=== PATIENT | female | born 1945 | race Caucasian/White ===

== ENCOUNTER 2017-08-30 19:21 | Observation (INO) | payer MEDICARE, OTHER ==
[~2017-08-30] VITALS: Ht 167.6 cm; Wt 68.4 kg
[2017-08-30 19:19] VITALS: O2SAT 98
[~2017-08-30 19:21] MED LIST: DEPA500T3 PO; DONE5TAB14 PO; OLAN5 PO
[2017-08-30] MEDS ORDERED: IOHEXOL 350 MG/ML 10 ML VIAL (for RAD DIAG) IVCONTRAST ONE (19:22)
[2017-08-30 19:24] VITALS: BP 147/76; PULSE 73; RESP 19; TEMP 98.2; O2SAT 98
[2017-08-30] MEDS ORDERED: SODIUM CHLOR 0.9% 1000 ML INJ 1,000 ML IV ONE (19:25)
--- NOTE | 2017-08-30 19:45 | RADRPT ---
EXAM DATE/TIME: 08/30/2017 19:35 [facility] COMPARISON: No previous studies available for comparison. INDICATIONS : Stroke alert, left sided facial droop. RADIATION DOSE: 36.84 CTDIvol (mGy) This report was called by Dr. Hidalgo to [facility] at 7: 42 PM MEDICAL HISTORY : Non-responsive. SURGICAL HISTORY : Non-responsive. ENCOUNTER: Initial ACUITY: 1 day PAIN SCALE: Non-responsive LOCATION: Bilateral head TECHNIQUE: Multiple contiguous axial images were obtained of the head. Using automated exposure control and adj ustment of the mA and/or kV according to patient size, radiation dose was kept as low as reasonably a chievable to obtain optimal diagnostic quality images. DICOM format image data is available electro nically for review and comparison. FINDINGS: CEREBRUM: The ventricles are normal for age. No evidence of midline shift, mass lesion, hemorrhage or acute in farction. No extra-axial fluid collections are seen. POSTERIOR FOSSA: The cerebellum and brainstem are intact. The 4th ventricle is midline. The cerebellopontine angle i s unremarkable. EXTRACRANIAL: The visualized portion of the orbits is intact. SKULL: The calvaria is intact. No evidence of skull fracture. CONCLUSION: 1. No acute intracranial abnormalities. Yunior Hidalgo MD on August 30, 2017 at 19:40 Board Certified Radiologist. This report was verified electronically.
[2017-08-30 19:51] VITALS: BP 177/83; PULSE 104; RESP 20; O2SAT 100
[2017-08-30 19:52] LABS: AUTOMATED NEUTROPHIL # 6.6 TH/MM3 (1.8-7.7); BASOPHIL # 0.1 TH/MM3 (0-0.2); BASOPHIL % 0.8 % (0.0-2.0); EOSINOPHIL # 0.2 TH/MM3 (0-0.4); EOSINOPHIL % 1.5 % (0.0-4.0); HEMATOCRIT 40.8 % (35.0-46.0); HEMOGLOBIN 14.1 GM/DL (11.6-15.3); LYMPH % 24.8 % (9.0-44.0); LYMPHOCYTE # 2.6 TH/MM3 (1.0-4.8); MEAN CELL VOLUME 93.3 FL (80.0-100.0); MEAN CORPUSCULAR HEMOGLOBIN 32.3 PG (27.0-34.0); MEAN CORPUSCULAR HGB CONC 34.6 % (32.0-36.0); MEAN PLATELET VOLUME 8.2 FL (7.0-11.0); MONO % 8.9 % (0.0-8.0); MONOCYTE # 0.9 TH/MM3 (0-0.9); PLATELET COUNT 214 TH/MM3 (150-450); RED BLOOD COUNT 4.38 MIL/MM3 (4.00-5.30); RED CELL DISTRIBUTION WIDTH 13.4 % (11.6-17.2); WHITE BLOOD COUNT 10.3 TH/MM3 (4.0-11.0)
[2017-08-30 20:07] LABS: INTERNATIONAL NORMALIZED RATIO 1.1 RATIO; PROTHROMBIN TIME - PATIENT 11.1 SEC (9.8-11.6)
[2017-08-30 20:08] LABS: TROPONIN I LESS THAN 0.02 NG/ML (0.02-0.05)
--- NOTE | 2017-08-30 20:21 | RADRPT ---
EXAM DATE/TIME: 08/30/2017 19:42 [facility] COMPARISON: No previous studies available for comparison. INDICATIONS : Stroke alert, left sided facial droop. IV CONTRAST: 98 cc Omnipaque 350 (iohexol) IV RADIATION DOSE: 28.38 CTDIvol (mGy) MEDICAL HISTORY : Non-responsive. SURGICAL HISTORY : Non-responsive. ENCOUNTER: Initial ACUITY: 1 day PAIN SCALE: Non-responsive LOCATION: Bilateral head TECHNIQUE: Volumetric scanning was performed using a multi-row detector CT scanner. The data was post processed with a variety of visualization algorithms including full volume maximum intensity projection, multi -planar sliding thin slab reformation, curved planar reformation, and surface rendering techniques. Using automated exposure control and adjustment of the mA and/or kV according to patient size, radiat ion dose was kept as low as reasonably achievable to obtain optimal diagnostic quality images. DICO M format image data is available electronically for review and comparison. FINDINGS: There is excellent visualization of the major intracranial arteries out to the second-order branch ve ssels. There is no evidence for aneurysm, vessel truncation or stenosis, and no evidence for vascula r malformation. CONCLUSION: Normal examination for a patient of this age. Yunior Hidalgo MD on August 30, 2017 at 20:14 Board Certified Radiologist. This report was verified electronically.
--- NOTE | 2017-08-30 20:22 | RADRPT ---
EXAM DATE/TIME: 08/30/2017 19:42 [facility] COMPARISON: No previous studies available for comparison. INDICATIONS : Stroke alert, left sided facial droop. IV CONTRAST: 98 cc Omnipaque 350 (iohexol) IV RADIATION DOSE: 28.38 CTDIvol (mGy) MEDICAL HISTORY : Non-responsive. SURGICAL HISTORY : Non-responsive. ENCOUNTER: Initial ACUITY: 1 day PAIN SCALE: Non-responsive LOCATION: Bilateral neck Elevated flow velocities and ICA/CCA ratios have been found to correlate with increased degrees of vessel stenosis, calculated as percentage of diameter relative to a normal segment of distal ICA/CCA. TECHNIQUE: Volumetric scanning was performed using a multirow detector CT scanner. The data was post processed with a variety of visualization algorithms including full-volume maximum intensity projection, multip lanar sliding thin-slab reformation, curved-planar reformation, and surface-rendering techniques. Us ing automated exposure control and adjustment of the mA and/or kV according to patient size, radiatio n dose was kept as low as reasonably achievable to obtain optimal diagnostic quality images. DICOM f ormat image data is available electronically for review and comparison. FINDINGS: AORTIC ARCH: There is a three-vessel origin of the great vessels from the aorta. No evidence of ostial narrowing. RIGHT CAROTID: The common carotid artery is intact. The carotid bulb has a normal configuration without ulceration o r narrowing. The internal carotid artery lumen is smooth without stenosis. The external carotid mone ry is intact. LEFT CAROTID: The common carotid artery is intact. The carotid bulb has a normal configuration without ulceration or narrowing. The internal carotid artery lumen is smooth without stenosis. The external carotid ar annelise is intact. VERTEBRALS: The vertebral arteries have a symmetric diameter. No stenotic lesions are seen. CONCLUSION: Normal examination for a patient of this age. Yunior Hidalgo MD on August 30, 2017 at 20:19 Board Certified Radiologist. This report was verified electronically.
[2017-08-30] MEDS ORDERED: ASPIRIN 300 MG SUPP RECTAL ONE (20:45)
[2017-08-30] MEDS ORDERED: SODIUM CHLORIDE 0.9% FLUSH 10 ML FLUSH IV FLUSH PRN (20:45)
[2017-08-30] MEDS ORDERED: GLUCAGON 1 MG/ML VIAL OTHER PRN (20:45)
[2017-08-30] MEDS ORDERED: DEXTROSE 50% IN WATER 50 ML VIAL(D50) IV PUSH PRN (20:45)
--- NOTE | 2017-08-30 20:46 | PD ---
HPI . Neuro deficits Chief Complaint: Neuro Symptoms/ Deficits Time Seen by Provider: 19:24 Travel History International Travel<30 days: No Contact w/Intl Traveler<30days: No Traveled to known affect area: No History of Present Illness HPI 31-year-old female sent from [facility] with reported sudden onset facial droop and dysarthria that occurred while at the dinner table this evening. There is no choking episode. No obvious witnessed seizure activity. As per EMS , patient had symptoms as described upon their presentation, however the symptoms improved significantly en route to the ED. Patient is unable to verbalize baseline, possible baseline dementia, difficult exam secondary to same. [facility] Past Medical History Narrative Medical Past medical history reviewed. Dementia noted. Blood Disorders: No Bipolar Disorder: Yes Anxiety: Yes Depression: Yes Cancer: No Cardiovascular Problems: No Dementia: Yes Diminished Hearing: No Endocrine: No Gastrointestinal Disorders: No Genitourinary: No Musculoskeletal: Yes Neurologic: Yes Psychiatric: Yes Reproductive: No Respiratory: No Immunizations Current: Yes ?: Not Menopausal: Yes Past Surgical History Hysterectomy: Yes Social History Alcohol Use: No Tobacco Use: No Substance Use: No Allergies-Medications (Allergen,Severity, Reaction): Coded Allergies: No Known Allergies (Verified , 06/24/14) Reported Meds & Prescriptions Reported Meds & Active Scripts Active Depakote (Divalproex Sodium) 500 Mg Annemarie 500 Mg PO HS 30 Days Donepezil HCl 5 Mg Tab 5 Mg PO HS 30 Days Olanzapine 5 Mg Tab 7.5 Mg PO Q12 30 Days Reported Depakote ER 500 mg (Divalproex Sodium) 500 Mg Tab 1 Tab PO HS Narrative Medication Allergies and medications reviewed, Depakote noted Review of Systems ROS Limitations: Clinical Condition, Altered Mental Status Eyes: No: Visual changes Physical Exam Exam Limitations: Clinical Condition, Altered Mental Status Narrative GENERAL: Awake and alert, dementia baseline, nonverbal. Vital signs afebrile normal and stable SKIN: Warm and dry. Color is normal. Patient has a chronic facial rash, bilateral nonvesicular HEAD: Atraumatic. Normocephalic. EYES: Pupils equal and round. No scleral icterus. No injection or drainage. ENT: No nasal bleeding or discharge. Mucous membranes pink and moist. NECK: Trachea midline. No JVD. Nontender full range of motion CARDIOVASCULAR: Regular rate and rhythm. S1-S2 no murmurs rubs gallops RESPIRATORY: No accessory muscle use. Clear to auscultation. Breath sounds equal bilaterally. GASTROINTESTINAL: Abdomen soft, non-tender, nondistended. Hepatic and splenic margins not palpable. MUSCULOSKELETAL: Extremities without clubbing, cyanosis, or edema. No obvious deformities. NEUROLOGICAL: Patient is demented and nonverbal, difficult exam. Patient has no facial asymmetry, is moving all 4 extremities spontaneously. Follows movement bilaterally with eyes. PSYCHIATRIC: Nonverbal demented baseline difficult exam Data Data Last Documented VS Vital Signs Date Time Temp Pulse Resp B/P (MAP) Pulse Ox O2 Delivery O2 Flow Rate FiO2 08/30/17 19:51 104 20 177/83 (114) 100 Nasal Cannula 2.00 08/30/17 19:24 98.2 Orders Orders Diet Npo (08/31/17 Breakfast) Activity Bed Rest (08/30/17 ) Electrocardiogram (08/30/17 ) I-Stat Profile (08/30/17 19:25) Prothrombin Time / Inr (Pt) (08/30/17:25) Act Partial Throm Time (Ptt) (08/30/17 19:25) Complete Blood Count With Diff (08/30/17 19:25) Fibrinogen (08/30/17 19:25) Creatine Kinase (Cpk) (08/30/17 19:25) Troponin I (08/30/17 19:25) Ua Includes Microscopic (08/30/17 19:25) Drug Screen, Random Urine (08/30/17 19:25) Type And Screen (08/30/17 19:25) Ct Brain W/O Iv Contrast(Rout) (08/30/17 ) Cta Brain W Iv Contrast W 3d (08/30/17 19:25) Cta Neck W Iv Contrast W 3d (08/30/17 19:25) Beta Hcg (Quant/Titer) (08/30/17 19:25) Consult Neurology (08/30/17 ) Blood Glucose (08/30/17 19:25) Ecg Monitoring (08/30/17 19:25) Neuro Checks Q2HX12,Q4H (08/30/17 19:25) Nursing Bedside Swallow Assess .ONCE (08/30/17 19:25) Iv Access Insert/Monitor (08/30/17 19:25) NPO (08/30/17 19:25) Oximetry (08/30/17 19:25) Resp Oxygen Nc Stroke (08/30/17 ) Sodium Chlor 0.9% 1000 Ml Inj (Ns 1000 M (08/30/17 19:25) Cath For Specimen (08/30/17 19:25) Iohexol 350 Inj (Omnipaque 350 Inj) (08/30/17 19:22) Aspirin Supp (Aspirin Supp) (08/30/17 20:45) Valproic Acid (Depakene) (08/30/17 20:35) Labs Laboratory Tests Test 08/30/17 19:25 White Blood Count 10.3 TH/MM3 Red Blood Count 4.38 MIL/MM3 Hemoglobin 14.1 GM/DL Bedside Hemoglobin 13.3 G/DL Hematocrit 40.8 % Bedside Hematocrit 39.0 % Mean Corpuscular Volume 93.3 FL Mean Corpuscular Hemoglobin 32.3 PG Mean Corpuscular Hemoglobin Concent 34.6 % Red Cell Distribution Width 13.4 % Platelet Count 214 TH/MM3 Mean Platelet Volume 8.2 FL Neutrophils (%) (Auto) 64.0 % Lymphocytes (%) (Auto) 24.8 % Monocytes (%) (Auto) 8.9 % Eosinophils (%) (Auto) 1.5 % Basophils (%) (Auto) 0.8 % Neutrophils # (Auto) 6.6 TH/MM3 Lymphocytes # (Auto) 2.6 TH/MM3 Monocytes # (Auto) 0.9 TH/MM3 Eosinophils # (Auto) 0.2 TH/MM3 Basophils # (Auto) 0.1 TH/MM3 CBC Comment DIFF FINAL Differential Comment Prothrombin Time 11.1 SEC Prothromb Time International Ratio 1.1 RATIO Activated Partial Thromboplast Time 21.1 SEC Fibrinogen 216 mg/dL Bedside Sodium 141 MMOL/L Bedside Potassium 4.2 MMOL/L Bedside Chloride 103 MMOL/L Bedside Blood Urea Nitrogen 19 MG/DL Bedside Creatinine 0.7 MG/DL Bedside Glucose 89 MG/DL Total Creatine Kinase 33 U/L Troponin I LESS THAN 0.02 NG/ML Human Chorionic Gonadotropin, Quant 6 MIU/ML MDM Medical Decision Making Medical Screen Exam Complete: Yes Emergency Medical Condition: Yes Medical Record Reviewed: Yes Differential Diagnosis Acute CVA, TIA, focal seizure, postictal paralysis Narrative Course CT brain negative as per radiology, CTA head and neck also negative as per radiology no acute abnormalities noted. Depakote level pending. Patient has resolving symptoms as outside of NIH stroke scale/tPA protocol. Case discussed with Dr. Shirley from neurology, agrees, patient was given rectal aspirin admitted to hospitalist service. d/w Dr Lozada Diagnosis Primary Impression: TIA (transient ischemic attack) Qualified Codes: G45.9 - Transient cerebral ischemic attack, unspecified Admitting Information Admitting Physician Requests: Admit Evans Washington MD Aug 30, 2017 20:46
[2017-08-30] MEDS: SODIUM CHLORIDE 0.9% FLUSH 10 ML FLUSH IV FLUSH SCH (21:00)
[2017-08-30 22:14] VITALS: BP 100/56; PULSE 71; RESP 16; O2SAT 98
[2017-08-30 23:54] LABS: BACTERIA, URINE RARE /hpf; BILIRUBIN, URINE NEG (NEG); BLOOD, URINE NEG (NEG); GLUCOSE,URINE NEG (NEG); KETONE, URINE NEG (NEG); NITRITE,URINE POS (NEG); URINE COLOR LIGHT-YELLOW (YELLW/STRAW); URINE LEUKOCYTE ESTERASE TRACE (NEG)
[2017-08-31] VITALS (9 sets, daily range): BP systolic 103–148; BP diastolic 59–81; PULSE 55–97; RESP 16–20; TEMP 96.8–98.1; O2SAT 93–100
--- NOTE | 2017-08-31 04:25 | HHI.HP ---
[facility] Primary Care Physician Carlos Ignacio MD Admission Diagnosis CVA/TIA vs Seizure Diagnoses: Travel History International Travel<30 Days: No Contact w/Intl Traveler <30 Da: No Traveled to Known Affected Are: No History of Present Illness History from her physician, and review of medical records, and intermediate transfer notes. Patient herself is an elderly lady with baseline dementia. She denies every single symptoms. She does not think the hospital. Transferred from [facility]. ER triage notes, patient was having slurred speech, left visual numbness and drooping one hour prior to the arrival to ER. Stroke alert was called. Per ER physician, patient's symptoms were resolving while in ER. Patient is also extremely poor historian due to baseline dementia. Therefore she was not a candidate for TPA. Review of Systems ROS Limitations: Altered Mental Status (advanced dementia. Not able to obtain) , Poor Historian (Patient was) Past Family Social History Past Medical History Per intermediate transfer notes, Osteoarthritis Dementia History of seizures Hyperlipidemia Macular degeneration Glaucoma Bipolar disorder Past Surgical History Unknown. Allergies: Coded Allergies: No Known Allergies (Verified , 06/24/14) Family History unknown Social History unknown, [facility] pt Physical Exam Vital Signs Vital Signs Date Time Temp Pulse Resp B/P (MAP) Pulse Ox O2 Delivery O2 Flow Rate FiO2 08/31/17 02:25 55 18 108/59 (75) 98 2.00 08/30/17 22:14 71 16 100/56 (71) 98 Nasal Cannula 2.00 08/30/17 19:51 104 20 177/83 (114) 100 Nasal Cannula 2.00 08/30/17 19:51 98 Nasal Cannula 3.00 08/30/17 19:24 98.2 73 19 147/76 (99) 98 Physical Exam GENERAL: This is a well-nourished, well-developed patient, in no apparent distress. SKIN: No rashes, ecchymoses or lesions. Cool and dry. HEAD: Atraumatic. Normocephalic. No temporal or scalp tenderness. EYES: No scleral icterus. No injection or drainage. ENT: Nose without bleeding, purulent drainage or septal hematoma.. Airway patent. NECK: Trachea midline. No JVD . Supple, nontender, no meningeal signs. CARDIOVASCULAR: Regular rate and rhythm without murmurs, gallops, or rubs. RESPIRATORY: Clear to auscultation. Breath sounds equal bilaterally. No wheezes , rales, or rhonchi. GASTROINTESTINAL: Abdomen soft, non-tender, nondistended. No guarding. MUSCULOSKELETAL: Extremities without clubbing, cyanosis, or edema. . No calf tenderness. NEUROLOGICAL: Awake and alert. Cranial nerves II through XII intact. Motor and sensory grossly within normal limits.. Normal speech. Laboratory Laboratory Tests Test 08/30/17 19:25 08/30/17 21:27 08/30/17 23:16 White Blood Count 10.3 Red Blood Count 4.38 Hemoglobin 14.1 Bedside Hemoglobin 13.3 Hematocrit 40.8 Bedside Hematocrit 39.0 Mean Corpuscular Volume 93.3 Mean Corpuscular Hemoglobin 32.3 Mean Corpuscular Hemoglobin Concent 34.6 Red Cell Distribution Width 13.4 Platelet Count 214 Mean Platelet Volume 8.2 Neutrophils (%) (Auto) 64.0 Lymphocytes (%) (Auto) 24.8 Monocytes (%) (Auto) 8.9 Eosinophils (%) (Auto) 1.5 Basophils (%) (Auto) 0.8 Neutrophils # (Auto) 6.6 Lymphocytes # (Auto) 2.6 Monocytes # (Auto) 0.9 Eosinophils # (Auto) 0.2 Basophils # (Auto) 0.1 CBC Comment DIFF FINAL Differential Comment Prothrombin Time 11.1 Prothromb Time International Ratio 1.1 Activated Partial Thromboplast Time 21.1 Fibrinogen 216 Bedside Sodium 141 Bedside Potassium 4.2 Bedside Chloride 103 Bedside Blood Urea Nitrogen 19 Bedside Creatinine 0.7 Bedside Glucose 89 Total Creatine Kinase 33 Troponin I LESS THAN 0.02 Human Chorionic Gonadotropin, Quant 6 Valproic Acid (Depakene) Level 32 Urine Color LIGHT-YELLOW Urine Turbidity CLEAR Urine pH 7.0 Urine Specific [place] 1.041 Urine Protein NEG Urine Glucose (UA) NEG Urine Ketones NEG Urine Occult Blood NEG Urine Nitrite POS Urine Bilirubin NEG Urine Urobilinogen LESS THAN 2.0 Urine Leukocyte Esterase TRACE Urine RBC LESS THAN 1 Urine WBC 2 Urine Bacteria RARE Urine Opiates Screen NEG Urine Barbiturates Screen NEG Urine Amphetamines Screen NEG Urine Benzodiazepines Screen NEG Urine Cocaine Screen NEG Urine Cannabinoids Screen NEG Result Diagram: 08/30/171924 Imaging Last 48 hours Impressions Neck CTA 08/30/171924 Signed Impressions: Service Date/Time: Wednesday, August 30, 2017 19:42 - CONCLUSION: Normal examination for a patient of this age. Yunior Hidalgo MD Head CTA 08/30/171924 Signed Impressions: Service Date/Time: Wednesday, August 30, 2017 19:42 - CONCLUSION: Normal examination for a patient of this age. Yunior Hidalgo MD Head CT 08/30/17 0000 Signed Impressions: Service Date/Time: Wednesday, August 30, 2017 19:35 - CONCLUSION: 1. No acute intracranial abnormalities. MD Slime So VTE Risk Assessment Caprini VTE Risk Assessment: Mod/High Risk (score >= 2) Caprini Risk Assessment Model Point Value = 1 Point Value = 2 Point Value = 3 Point Value = 5 Age 41-60 Minor surgery BMI > 25 kg/m2 Swollen legs Varicose veins or History of unexplained or recurrent spontaneous Oral contraceptives or hormone replacement Sepsis (< 1 month) Serious lung disease, including pneumonia (< 1 month) Abnormal pulmonary function Acute myocardial infarction Congestive heart failure (< 1 month) History of inflammatory bowel disease Medical patient at bed rest Age 61-74 Arthroscopic surgery Major open surgery (> 45 min) Laparoscopic surgery (> 45 min) Malignancy Confined to bed (> 72 hours) Immobilizing plaster cast Central venous access Age >= 75 History of VTE Family history of VTE Factor V Leiden Prothrombin [id number] Lupus anticoagulant Anticardiolipin antibodies Elevated serum homocysteine Heparin-induced thrombocytopenia Other congenital or acquired thrombophilia Stroke (< 1 month) Elective arthroplasty Hip, pelvis, or leg fracture Acute spinal cord injury (< 1 month) Prophylaxis Regimen Total Risk Factor Score Risk Level Prophylaxis Regimen 0-1 Low Early ambulation 2 Moderate Order ONE of the following: *Sequential Compression Device (SCD) *Heparin 5000 units SQ BID 3-4 Higher Order ONE of the following medications: *Heparin 5000 units SQ TID *Enoxaparin/Lovenox 40 mg SQ daily (WT < 150 kg, CrCl > 30 mL/min) *Enoxaparin/Lovenox 30 mg SQ daily (WT < 150 kg, CrCl > 10-29 mL/min) *Enoxaparin/Lovenox 30 mg SQ BID (WT < 150 kg, CrCl > 30 mL/min) AND/OR *Sequential Compression Device (SCD) 5 or more Highest Order ONE of the following medications: *Heparin 5000 units SQ TID (Preferred with Epidurals) *Enoxaparin/Lovenox 40 mg SQ daily (WT < 150 kg, CrCl > 30 mL/min) *Enoxaparin/Lovenox 30 mg SQ daily (WT < 150 kg, CrCl > 10-29 mL/min) *Enoxaparin/Lovenox 30 mg SQ BID (WT < 150 kg, CrCl > 30 mL/min) AND *Sequential Compression Device (SCD) Assessment and Plan Assessment and Plan Impression: TIA History of seizures. History is limited as to what happened prior to coming to hospital. Apparently this was at the dining table at nursing facility. Osteoarthritis Dementia Hyperlipidemia Macular degeneration Glaucoma Bipolar disorder Plan: Seizure precautions. Neurochecks every 4 hours. I'm permissive hypertension. EEG in the morning. Imaging studies personally reviewed. No evidence of acute infarct/mass/shift. Neurology consult. DVT prophylaxis with Lovenox. Code Status DNR pt has [facility] papers Discussed Condition With patient, nursing staff Alona Lozada MD Aug 31, 2017 04:25
[2017-08-31 04:53] LABS: CHOLESTEROL/ HDL RATIO 3.82 RATIO
[2017-08-31] MEDS ORDERED: BRIM0.2S4 EACH EYE (05:17)
[2017-08-31] MEDS ORDERED: [UNRECOGNIZED DRUG - CODE] DENTAL (05:17)
[2017-08-31] MEDS ORDERED: LIPI40TA PO (05:17)
[2017-08-31] MEDS ORDERED: ONETAB22 (05:17)
[2017-08-31] MEDS ORDERED: ZYPR5TAB PO (05:17)
[2017-08-31] MEDS ORDERED: PROZ20CA11 PO ×2 (05:17)
[2017-08-31] MEDS ORDERED: BENZ9.352 (05:17)
[2017-08-31] MEDS ORDERED: LATA0.002 EACH EYE (05:17)
[2017-08-31] MEDS: SODIUM CHLORIDE 0.9% FLUSH 10 ML FLUSH IV FLUSH SCH ×2 (08:43→22:40)
[2017-08-31] MEDS: ENOXAPARIN SODIUM 40 MG/0.4 ML SYRINGE SQ SCH (08:45)
[2017-08-31 18:10] LABS: HEMOGLOBIN A1C 4.4 % (4.3-6.0)
--- NOTE | 2017-08-31 20:37 | EKG ---
Date Performed: 08/30/2017 Time Performed: 19:53:23 PTAGE: 71 years EKG: SINUS TACHYCARDIA POSSIBLE LEFT ATRIAL ENLARGEMENT NONSPECIFIC ST & T-WAVE ABNORMALITY ABNO RMAL RHYTHM ECG PREVIOUS TRACING : 06/05/2014 14.16 Compared to previous tracing sinus tachcardia and st-t wave abnormalities are new DOCTOR: Cristo Avila Interpretating Date/Time 08/31/2017 20:36:39
[2017-08-31] MEDS ORDERED: OLANZapine 5 MG TAB PO SCH (21:00)
[2017-08-31] MEDS ORDERED: ATORVASTATIN 40 MG TAB PO SCH (21:00)
[2017-08-31] MEDS ORDERED: DIVALPROEX SODIUM E.R. 500 MG TAB PO SCH (21:00)
[2017-08-31] MEDS ORDERED: LATANOPROST 0.005% OPHT SOLN 2.5 ML BTL EACH EYE SCH (21:00)
[2017-08-31] MEDS: BRIMONIDINE TARTRATE 0.2% OPHT SOLN 5 ML BTL EACH EYE SCH (22:39)
[2017-09-01] VITALS: BP 118/62; PULSE 63; RESP 20; TEMP 97.1; O2SAT 97
[2017-09-01] MEDS ORDERED: DEXTROSE 50% IN WATER 50 ML VIAL(D50) IV PUSH PRN (00:15)
[2017-09-01] MEDS ORDERED: SODIUM CHLORIDE 0.9% FLUSH 10 ML FLUSH IV FLUSH PRN (00:15)
[2017-09-01] MEDS ORDERED: GLUCAGON 1 MG/ML VIAL OTHER PRN (00:15)
--- NOTE | 2017-09-01 00:31 | MB ---
cc: Ajay Jeffery MD, PhD DATE: 09/01/2017 REASON FOR CONSULTATION: Stroke. HISTORY OF PRESENT ILLNESS: Ms. Alford is a pleasant 71-year-old woman who was transferred from the [place] [facility] with sudden onset of slurred speech, left-sided facial droop, and numbness. She has a baseline dementia. Stroke alert was called, but it is felt, due to minimal changes, she was not a TPA candidate. Her symptoms have since improved. PAST MEDICAL HISTORY: There is a history of bipolar disorder, dementia, depression. MEDICATIONS: She is on Depakote, donepezil, olanzapine. ALLERGIES: NONE KNOWN. NEUROLOGICAL EXAMINATION: VITAL SIGNS: Blood pressure is 115/69, pulse 95, respiratory rate 20, temperature 96.8 degrees. HIGHER CORTICAL FUNCTION: She is alert, disoriented to date. She is very confused, has difficulty following simple commands. Speech is nondysarthric. CRANIAL NERVES: Intact. There is no facial droop presently. MOTOR EXAM: 5/5 strength of all groups. Reflexes are symmetric. IMAGING: CT scan of the brain: No acute change present. CTA of the neck is normal with no significant stenosis. CTA brain is normal. LABORATORY DATA: White count 10,300, hemoglobin 14.1, hematocrit 40.8%, platelet count 214,000. Sodium is 141, potassium 4.2, chloride 103, BUN is 19, creatinine 0.7, glucose 89. Cholesterol 163, LDL 82, HDL 40. PT 11.1, INR 1.1, APTT 21. Tox screen: Valproic acid level 32. EKG is sinus tachycardia, left atrial enlargement. IMPRESSION: Transient ischemic attack, now resolved. RECOMMENDATIONS: Start aspirin 325 mg daily. Check an echocardiogram. Monitor cardiac telemetry to rule out atrial fibrillation. Ajay Jeffery MD, PhD CORIN/EMILEE , 12:13 AM , 12:29 AM
[2017-09-01 04:00] VITALS: BP 115/68; PULSE 68; RESP 20; TEMP 96.8; O2SAT 96
--- NOTE | 2017-09-01 07:17 | MG ---
cc: Laine Taylor MD DATE OF STUDY: Today, 08/31. CLINICAL HISTORY: An EEG was obtained on this 71-year-old patient being evaluated for TIA, depression. The patient is described as awake during the study. This EEG shows a mixture of rhythms. There is some significant amount of intermixed theta activity in the central and posterior head regions bilaterally. There are beta rhythms centrally and frontally along with a lot of artifact. The photic stimulation disclosed no change. INTERPRETATION: Abnormal EEG because of intermittent frequent intermixed theta activity bilaterally suggesting mild diffuse disturbance of cerebral function or bilateral structural abnormalities. No epileptiform features present. This study is somewhat limited due to the excessive amount of artifact. Laine Grider. MD Claudia OFC/DL , 06:53 AM , 07:17 AM
[2017-09-01] MEDS: INSULIN ASPART SUPPLEMENTAL SCALE SQ SCH ×3 (08:00→17:00)
[2017-09-01 08:08] VITALS: O2SAT 94
[2017-09-01] MEDS: SODIUM CHLORIDE 0.9% FLUSH 10 ML FLUSH IV FLUSH SCH (08:40)
[2017-09-01] MEDS: BRIMONIDINE TARTRATE 0.2% OPHT SOLN 5 ML BTL EACH EYE SCH (08:40)
[2017-09-01] MEDS: ENOXAPARIN SODIUM 40 MG/0.4 ML SYRINGE SQ SCH (08:40)
[2017-09-01] MEDS ORDERED: ASA325 PO (08:43)
--- NOTE | 2017-09-01 08:43 | HHI.DS ---
Discharge Summary Admission Date Aug 30, 2017 at 20:49 Discharge Date: Sep 01, 2017 Admitting Diagnosis CVA/TIA vs Seizure (1) TIA (transient ischemic attack) ICD Code: G45.9 - Transient cerebral ischemic attack, unspecified Status: Acute (2) Bipolar disorder ICD Code: F31.9 - Bipolar disorder Status: Acute (3) Confusion ICD Code: R41.0 - Confusion Status: Acute Procedures No procedures Brief History - From Admission History from her physician, and review of medical records, and penitentiary transfer notes. Patient herself is an elderly lady with baseline dementia. She denies every single symptoms. She does not think the hospital. Transferred from [facility] and [facility]. ER triage notes, patient was having slurred speech, left visual numbness and drooping one hour prior to the arrival to ER. Stroke alert was called. Per ER physician, patient's symptoms were resolving while in ER. Patient is also extremely poor historian due to baseline dementia. Therefore she was not a candidate for TPA. CBC/BMP: 08/30/171924 Significant Findings Laboratory Tests Test 08/30/17 19:25 08/30/17 21:27 08/30/17 23:16 08/31/17 03:53 Monocytes (%) (Auto) 8.9 % (0.0-8.0) Activated Partial Thromboplast Time 21.1 SEC (24.3-30.1) Fibrinogen 216 mg/dL (227-377) Troponin I LESS THAN 0.02 NG/ML Human Chorionic Gonadotropin, Quant 6 MIU/ML (0-5) Valproic Acid (Depakene) Level 32 MCG/ML (50-100) Urine Specific [place] 1.041 (1.002-1.035) Urine Nitrite POS (NEG) Urine Leukocyte Esterase TRACE (NEG) Urine Bacteria RARE /hpf (NONE) Triglycerides Level 156 MG/DL (42-150) Imaging Last Impressions Neck CTA 08/30/171924 Signed Impressions: Service Date/Time: Wednesday, August 30, 2017 19:42 - CONCLUSION: Normal examination for a patient of this age. Yunior Hidalgo MD Head CTA 08/30/17 1925 Signed Impressions: Service Date/Time: Wednesday, August 30, 2017 19:42 - CONCLUSION: Normal examination for a patient of this age. Yunior Hidalgo MD Head CT 08/30/17 0000 Signed Impressions: Service Date/Time: Wednesday, August 30, 2017 19:35 - CONCLUSION: 1. No acute intracranial abnormalities. Yunior Hidalgo MD PE at Discharge GENERAL: This is a pleasantly confused 71-year-old female, well-nourished, well- developed patient, in no apparent distress. CARDIOVASCULAR: Regular rate and rhythm without murmurs, gallops, or rubs. RESPIRATORY: Clear to auscultation. Breath sounds equal bilaterally. No wheezes , rales, or rhonchi. GASTROINTESTINAL: Abdomen soft, non-tender, nondistended. No guarding. MUSCULOSKELETAL: Extremities without clubbing, cyanosis, or edema. . No calf tenderness. NEUROLOGICAL: Awake and alert. Cranial nerves II through XII intact. Motor and sensory grossly within normal limits.. Normal speech. Pt update on day of discharge The patient is pleasantly confused, in bed. She follows commands. Denies any chest pain or shortness of breath. No nausea, vomiting, diarrhea or constipation. She is able to eat without problems. No new motor deficit. She is able to ambulate with some help Hospital Course TIA History of seizures. History is limited as to what happened prior to coming to hospital. Apparently this was at the dining table at nursing facility. EEG reviewed, no epileptiform futures Osteoarthritis Dementia Hyperlipidemia Macular degeneration Glaucoma Bipolar disorder Seizure precautions. Neurochecks every 4 hours. Allow permissive hypertension. EEG reviewed no epileptiform features Imaging studies reviewed. No evidence of acute infarct/mass/shift. Neurology consult appreciate recommendations. Plan for ECHO Plan for MRI If ECHO and MRI is normal plan to discharge back to SNF to follow up as OP with PCP and consultants DVT prophylaxis with Lovenox. Code Status DNR pt has [facility] papers Discussed Condition With patient, nurse Improved. To follow up as OP with PCP and consultants Pt Condition on Discharge: Stable Discharge Disposition: Discharge to SNF Discharge Time: > 30 minutes Discharge Instructions DIET: Follow Instructions for: Heart Healthy Diet Activities you can perform: Regular-No Restrictions Follow up Referrals: Neurology - 2 Weeks PCP Follow-up - 2-3 Days New Medications: Aspirin (Px Aspirin) 325 Mg Tab 325 MG PO DAILY for Blood Clot Prevention, #30 TAB Continued Medications: Atorvastatin (Lipitor) 40 Mg Tab 40 MG PO HS for Cholesterol Management, #30 TAB 0 Refills Benzocaine (Oral Pain Relief) 20 % Gel..gram. Benzocaine Dental (Anbesol Maximum Strength Dental) 20% Liqd 1 APPLIC DENTAL PRN for PAIN SCALE 1 TO 7, #1 BOTTLE Brimonidine Opth Drops (Brimonidine Opth Drops) 0.2% Soln 1 DROP EACH EYE BID for Intraocular pressure, #1 BOTTLE 0 Refills Divalproex ER 500 mg (Depakote ER 500 mg) 500 Mg Tab 1 TAB PO HS, TAB Fluoxetine (Prozac) 20 Mg Cap 20 MG PO DAILY, #30 CAP 0 Refills Latanoprost Opth Drops (Latanoprost Opth Drops) 0.005% Drops 1 DROP EACH EYE HS for Glaucoma, #2.5 ML 0 Refills Refrigerate until opened. Multivitamin with Minerals (One Daily Plus Minerals) 1 Each Tablet Olanzapine (Zyprexa) 5 Mg Tab 5 MG PO HS, #30 TAB 0 Refills Adelaida Mccarthy MD Sep 01, 2017 08:43
[2017-09-01 08:45] VITALS: BP 148/67; PULSE 62; RESP 16; TEMP 96.7; O2SAT 96
[2017-09-01 09:00] VITALS: PULSE 86
[2017-09-01] MEDS ORDERED: SODIUM CHLORIDE 0.9% FLUSH 10 ML FLUSH IV FLUSH SCH (09:00)
[2017-09-01] MEDS ORDERED: FLUoxetine HCL 20 MG CAP PO SCH (09:00)
[2017-09-01] MEDS ORDERED: ASPIRIN 325 MG TAB PO SCH (09:00)
[2017-09-01] MEDS ORDERED: PNEUMOCOCCAL POLYVALENT INJ 25 MCG/0.5 ML SYR IM ONE (10:00)
--- NOTE | 2017-09-01 12:14 | RADRPT ---
EXAM DATE/TIME: 09/01/2017 11:28 [place] COMPARISON: No previous studies available for comparison. INDICATIONS : CVA. MEDICAL HISTORY : None. SURGICAL HISTORY : Hysterectomy. Index finger removal. ENCOUNTER: Initial ACUITY: 1 day PAIN SCORE: 0/10 LOCATION: Head. TECHNIQUE: Multiplanar, multisequence MRI of the brain was performed without contrast. FINDINGS: CEREBRUM: The ventricles are normal for age. There is bilateral cortical atrophy. No evidence of midline shift , mass lesion, hemorrhage or acute infarction. No extraaxial fluid collections are seen. The pituit edwin gland and suprasellar cistern are normal in configuration. WHITE MATTER: No significant signal abnormalities are seen in the white matter. A few high signal spots are seen in the white matter tracks bilaterally characteristic of ischemic demyelinization. This correlates with patient's age. POSTERIOR FOSSA: The cerebellum and brainstem are intact. The 4th ventricle is midline. The cerebellopontine angle is unremarkable. The cerebellar tonsils are normal in position. DIFFUSION IMAGING: No focal areas of restricted diffusion are seen. No evidence of acute infarction. EXTRACRANIAL: The visualized portions of the orbits and paranasal sinuses are unremarkable. There is evidence of hy perostosis frontalus interna. CONCLUSION: Bilateral cortical atrophy and chronic white matter changes characteristic for patient's age. No acut e intracranial pathology. Ruben Cooper MD on September 01, 2017 at 12:11 Board Certified Radiologist. This report was verified electronically.
[2017-09-01 12:33] VITALS: BP 122/64; PULSE 75; RESP 16; TEMP 97.6; O2SAT 95
--- NOTE | 2017-09-01 14:31 | PD.CONS ---
Assessment and Plan Assessment Consult received per stroke order set. EMR reviewed. MRI negative for acute stroke. Neurology consult reviewed and indicates TIA. Consult deferred due to no acute stroke. Please reconsult as appropriate. Thank you. Pamela Bella MD Sep 01, 2017 14:31
--- NOTE | 2017-09-01 15:15 | ECHRPT ---
Indication: CVA/TIA CONCLUSIONS The left ventricular systolic function is normal with an estimated ejection fraction in the range of 55-60%. Normal left ventricular size. Wall thickness is normal. No regional wall motion abnormalities are present. There is trace tricuspid valve regurgitation. The estimated pulmonary arterial pressure is 34.4 mmHg. BP: 115 / 68 HR: 84 Rhythm: MEASUREMENTS (Male / Female) Normal Values Technical Quality: 2D ECHO LV Diastolic Diameter PLAX 3.5 cm 4.2 - 5.9 / 3.9 - 5.3 cm LV Systolic Diameter PLAX 2.6 cm IVS Diastolic Thickness 0.9 cm 0.6 - 1.0 / 0.6 - 0.9 cm LVPW Diastolic Thickness 0.9 cm 0.6 - 1.0 / 0.6 - 0.9 cm LV Relative Wall Thickness 0.5 RV Internal Dim ED PLAX 2.8 cm LVOT Diameter 1.9 cm LA Systolic Diameter LX 2.8 cm 3.0 - 4.0 / 2.7 - 3.8 cm LV Ejection Fraction MOD 4C 58.4 % LV Cardiac Index MOD 4C 2114.1 cm/minm LV Ejection Fraction 4C AL 59.4 % LV Cardiac Index 4C AL 2224.8 cm/minm M-MODE Aortic Root Diameter MM 2.4 cm AV Cusp Separation MM 1.7 cm DOPPLER AV Peak Velocity 119.0 cm/s AV Peak Gradient 5.7 mmHg LVOT Peak Velocity 92.8 cm/s LVOT Peak Gradient 3.4 mmHg AV Area Cont Eq pk 2.2 cm MV Area PHT 2.1 cm Mitral E Point Velocity 56.3 cm/s Mitral A Point Velocity 69.6 cm/s Mitral E to A Ratio 0.8 LV E' Lateral Velocity 7.6 cm/s Mitral E to LV E' Lateral Ratio 7.4 LV E' Septal Velocity 7.1 cm/s Mitral E to LV E' Septal Ratio 7.9 TR Peak Velocity 247.0 cm/s TR Peak Gradient 24.4 mmHg Right Atrial Pressure 10.0 mmHg Pulmonary Artery Systolic Pressu 34.4 mmHg Right Ventricular Systolic Press 34.4 mmHg PV Peak Velocity 76.0 cm/s PV Peak Gradient 2.3 mmHg FINDINGS LEFT VENTRICLE The left ventricular systolic function is normal with an estimated ejection fraction in the range of 55-60%. Normal left ventricular size. Wall thickness is normal. No regional wall motion abnormalities are present. RIGHT VENTRICLE Normal right ventricular size and systolic function. LEFT ATRIUM The left atrial size is normal. RIGHT ATRIUM The right atrial size is normal. ATRIAL SEPTUM Normal atrial septal thickness without atrial level shunting by limited color doppler interrogation. AORTA The aortic root and proximal ascending aorta are normal in size on limited imaging. MITRAL VALVE Structurally normal mitral valve. No mitral valve stenosis or regurgitation. AORTIC VALVE Trileaflet aortic valve. No aortic valve stenosis or regurgitation. TRICUSPID VALVE Structurally normal tricuspid valve. There is trace tricuspid valve regurgitation. The estimated pulmonary arterial pressure is 34.4 mmHg. PULMONARY VALVE No pulmonary valve regurgitation or stenosis. VESSELS The inferior vena cava is normal in size. PERICARDIUM No pericardial effusion. Rio Gonzalez MD, FACC, [facility] [place] (Electronically Signed) Final Date:01 September 2017 15:14
== END 2017-09-01 19:03 ==
LOC: NEPC 19:21 → NEDA 20:49 → NEDH 08-31 00:57 → PH3A 08-31 12:38
PROVIDERS: ADMIT Hospitalist; ATTEND Hospitalist
DX: G45.9 Transient cerebral ischemic attack, unspecified (principal); G40.909 Epilepsy, unspecified, not intractable, without status epilepticus; R94.01 Abnormal electroencephalogram [EEG]; R00.0 Tachycardia, unspecified; R94.31 Abnormal electrocardiogram [ECG] [EKG]; G31.9 Degenerative disease of nervous system, unspecified; E78.5 Hyperlipidemia, unspecified; H35.30 Unspecified macular degeneration; F03.90 Unspecified dementia, unspecified severity, without behavioral disturbance, psychotic disturbance, mood disturbance, and anxiety; H40.9 Unspecified glaucoma; F31.9 Bipolar disorder, unspecified; M19.90 Unspecified osteoarthritis, unspecified site; Z86.73 Personal history of transient ischemic attack (TIA), and cerebral infarction without residual deficits; Z23 Encounter for immunization
CPT/HCPCS: 70450; 70496; 70498; 70551; 80048; 80061; 80164; 80307; 81001; 82550; 82948; 83036; 84484; 84702; 85025; 85384; 85610; 85730; 86850; 86900; 86901; 93005; 93306; 95819; 96360; 96372; 97110; 97116; 97162; 97166; 99285; G0009; G0378; G8987; G8988; G8989; J1650; J7030; Q9967; 90471